=== PATIENT | female | born 1970 | race African-American/Black ===

== ENCOUNTER 2021-06-17 11:37 | Emergency (ER) | payer MEDICARE ==
[2021-06-17] MEDS ORDERED: Silver Sulfadiazine 50 GM TUBE ONE (12:19)
== END 2021-06-17 12:52 | disposition home or self-care (01) ==
LOC: CSHERS 11:37
DX: T21.21XA Burn of second degree of chest wall, initial encounter (principal)
CPT/HCPCS: 16020